=== PATIENT | male | born 1945 | race Caucasian/White ===

== ENCOUNTER → 2021-03-27 | Outpatient (CLI) | payer MEDICARE, OTHER | END | disposition home or self-care (01) | LOC: LAB 12:20 | PROVIDERS: ATTEND Specialist | DX: R06.02 Shortness of breath (principal); Z20.822 Contact with and (suspected) exposure to COVID-19 | CPT/HCPCS: 87426 ==

== ENCOUNTER → 2021-03-30 | Day surgery (SDC) | payer MEDICARE, OTHER ==
[~2021-03-30] MED LIST: ACETAMINOPHEN 325MG TABLET PO PRN; ALPR0.5T PO; AMLO2.5T45 PO; APIX5TAB PO; ATEN50TA PO; ATOR20TA PO; CYAN-50 PO; MG T1TAB3 PO; MORPHINE SULFATE 2 MG/ML CPJ (NOT FOR IM USE) IV PRN; NALOXONE HCL 0.4MG/ML VIAL IV PRN; OMEP20TA2 PO; PROPOFOL 10MG/ML 100ML 100 ML IV ONE
== END | disposition home or self-care (01) ==
LOC: CARD 10:55
PROVIDERS: ATTEND Specialist
DX: I48.91 Unspecified atrial fibrillation (principal); I10 Essential (primary) hypertension; I25.10 Atherosclerotic heart disease of native coronary artery without angina pectoris; K21.9 Gastro-esophageal reflux disease without esophagitis; E78.5 Hyperlipidemia, unspecified; Z79.899 Other long term (current) drug therapy; Z98.890 Other specified postprocedural states
CPT/HCPCS: 92960; J2704

== ENCOUNTER → 2021-05-09 | Outpatient (CLI) | payer MEDICARE, OTHER ==
[~2021-05-09] MED LIST changes: -ACETAMINOPHEN 325MG TABLET PO PRN; -ALPR0.5T PO; -CYAN-50 PO; -MORPHINE SULFATE 2 MG/ML CPJ (NOT FOR IM USE) IV PRN; -NALOXONE HCL 0.4MG/ML VIAL IV PRN; -PROPOFOL 10MG/ML 100ML 100 ML IV ONE
== END | disposition home or self-care (01) ==
LOC: LAB 05-01 09:20
PROVIDERS: ATTEND Internal Medicine Critical Care Medicine
DX: R05.9 Cough, unspecified (principal); Z20.822 Contact with and (suspected) exposure to COVID-19
CPT/HCPCS: C9803; U0003; U0005

== ENCOUNTER → 2022-07-17 | Day surgery (SDC) | payer MEDICARE, OTHER ==
[~2022-07-17] VITALS: Ht 182.9 cm; Wt 81.6 kg
[~2022-07-17] MED LIST changes: +ACETAMINOPHEN 325MG TABLET PO PRN; +FENTANYL CITRATE/PF 50MCG/ML 2ML VIAL ONE; +LIDOCAINE 2% 6ML GLYDO MM ONE; -MG T1TAB3 PO; +MG T1TAB4 PO; +MIDAZOLAM HCL 2 MG/2 ML VIAL ONE; +MORPHINE SULFATE 2 MG/ML CPJ (NOT FOR IM USE) IV PRN; -OMEP20TA2 PO; +OMEP20TA23 PO; +ONDANSETRON HCL 4MG/2ML INJ IV PRN; +PROPOFOL 200MG/20ML VIAL IV ONE; +TETRACAINE/BENZOCAINE/BUTAMBEN 20 GM SPRAY MM ONE
== END | disposition home or self-care (01) ==
LOC: CCL 11:41
PROVIDERS: ATTEND Specialist
DX: I34.0 Nonrheumatic mitral (valve) insufficiency (principal); I48.91 Unspecified atrial fibrillation; I25.10 Atherosclerotic heart disease of native coronary artery without angina pectoris; I10 Essential (primary) hypertension; E78.5 Hyperlipidemia, unspecified; Z79.899 Other long term (current) drug therapy; Z98.890 Other specified postprocedural states
CPT/HCPCS: 92960; 93005; 93312; 93325; J2250; J2704; J3010; Z7610

== ENCOUNTER → 2023-05-16 | Day surgery (SDC) | payer MEDICARE, OTHER ==
[~2023-05-16] VITALS: Ht 182.9 cm; Wt 79.4 kg
[~2023-05-16] MED LIST changes: -ACETAMINOPHEN 325MG TABLET PO PRN; +ASPI-1497 PO; -FENTANYL CITRATE/PF 50MCG/ML 2ML VIAL ONE; +HYDROMORPHONE HCL/PF 2MG/ML CPJ IV PRN; +LABETALOL 5MG/ML SYR 20 MG/4 ML SYRINGE IV PRN; +LIDOCAINE HCL 1% 10 MG/ML 10ML VIAL ONE; +MEPERIDINE HCL/PF 25MG/ML CPJ IV PRN; -MIDAZOLAM HCL 2 MG/2 ML VIAL ONE; -MORPHINE SULFATE 2 MG/ML CPJ (NOT FOR IM USE) IV PRN
== END | disposition home or self-care (01) ==
LOC: CARD 08:39
PROVIDERS: ATTEND Specialist
DX: I48.92 Unspecified atrial flutter (principal); I08.1 Rheumatic disorders of both mitral and tricuspid valves; I10 Essential (primary) hypertension; I25.10 Atherosclerotic heart disease of native coronary artery without angina pectoris; I48.91 Unspecified atrial fibrillation; E11.9 Type 2 diabetes mellitus without complications; Z79.82 Long term (current) use of aspirin; Z79.899 Other long term (current) drug therapy; Z98.890 Other specified postprocedural states
CPT/HCPCS: 92960; 93325; 93312; 93005; J3490; J2704; Z7610 ×5

== ENCOUNTER → 2023-10-04 | Day surgery (SDC) | payer MEDICARE, OTHER ==
[~2023-10-04] VITALS: Ht 182.9 cm; Wt 79.4 kg
[~2023-10-04] MED LIST changes: -HYDROMORPHONE HCL/PF 2MG/ML CPJ IV PRN; -LABETALOL 5MG/ML SYR 20 MG/4 ML SYRINGE IV PRN; -LIDOCAINE HCL 1% 10 MG/ML 10ML VIAL ONE; -MEPERIDINE HCL/PF 25MG/ML CPJ IV PRN; -ONDANSETRON HCL 4MG/2ML INJ IV PRN
[2023-10-04] MEDS: SODIUM CHLORIDE 0.45% 500 ML IV SCH (12:16)
== END | disposition home or self-care (01) ==
LOC: CARD 10:15
PROVIDERS: ATTEND Specialist
DX: I34.0 Nonrheumatic mitral (valve) insufficiency (principal); I10 Essential (primary) hypertension; E78.5 Hyperlipidemia, unspecified; I48.91 Unspecified atrial fibrillation; I42.1 Obstructive hypertrophic cardiomyopathy; Z79.82 Long term (current) use of aspirin; Z79.899 Other long term (current) drug therapy; Z98.890 Other specified postprocedural states
CPT/HCPCS: 92960; 93312; 93005; J2704